=== PATIENT | male | born 1955 | race Caucasian/White ===

== ENCOUNTER 2016-10-24 15:41 | Emergency (ER) | payer OTHER ==
[~2016-10-24] VITALS: Ht 170.2 cm; Wt 85.0 kg
[2016-10-24 15:44] VITALS: BP 126/80; PULSE 105; RESP 14; TEMP 98.3; O2SAT 100
[2016-10-24] MEDS ORDERED: OMEP20TA PO (17:05)
[2016-10-24] MEDS ORDERED: HYDR25TA5 PO (17:05)
[2016-10-24] MEDS ORDERED: LOSA100T PO (17:05)
--- NOTE | 2016-10-24 17:27 | PD ---
HPI Chief Complaint: Pain: Acute or Chronic Time Seen by Provider: 17:03 Travel History International Travel<30 days: No Contact w/Intl Traveler<30days: No Traveled to known affect area: No History of Present Illness HPI This is a 61-year-old male who presents to the emergency department with pain in his left ankle and calf, constant, severe, feeling like needles shooting in his leg. He says this is been going on forever. He says it's gotten worse in the past week and a half because his physician took him off of oxycodone and put him on tramadol. He's had ligament reconstructions of his ankle in the past and he had an injury at work leading to pain in his ankle. He also reports that over the past months to a year he's lost 40 pounds, he is becoming more weak, and he has developed a generalized tremor. The tremor was intermittent at first but now appears to be affecting him all the time particularly in the past 2 weeks and he has difficulty doing simple things like mowing his lawn or riding his motorcycle. He's never seen a doctor for this. He says he drinks alcohol but not every day and when he drinks he drinks about a sixpack of beer. PFSH Past Medical History Hx Anticoagulant Therapy: No Cardiovascular Problems: Yes Diabetes: No Hypertension: Yes Past Surgical History Other Surgery: Yes (left leg) Social History Alcohol Use: Yes (occ) Tobacco Use: Yes Substance Use: No Allergies-Medications (Allergen,Severity, Reaction): Coded Allergies: No Known Allergies (Unverified , 10/24/16) Reported Meds & Prescriptions Reported Meds & Active Scripts Active Reported Hydrochlorothiazide 25 Mg Tab 25 Mg PO DAILY Omeprazole 20 Mg Tab 20 Mg PO DAILY Losartan (Losartan Potassium) 100 Mg Tab 100 Mg PO DAILY Review of Systems Except as stated in HPI: all other systems reviewed are Neg Physical Exam Narrative GENERAL:Well appearing, no acute distress SKIN: Focused skin assessment warm and dry. HEAD: Atraumatic. Normocephalic. EYES: Pupils equal and round. No injection or drainage. ENT: Moist mucous membranes NECK: Trachea midline. CARDIOVASCULAR: Regular rate and rhythm. No murmur appreciated. RESPIRATORY: Clear to auscultation. Breath sounds equal bilaterally. GASTROINTESTINAL: Abdomen soft, non-tender, nondistended. MUSCULOSKELETAL: No obvious deformities. NEUROLOGICAL: Awake and alert. No obvious cranial nerve deficits. Muscle fasciculations in the calves, resting tremor in the bilateral upper extremities , some ataxia appears to be associated with tremor. No dysarthria or aphasia. No upper or lower extremity drift. PSYCHIATRIC: Appropriate mood and affect; insight and judgment normal. Data Data Last Documented VS Vital Signs Date Time Temp Pulse Resp B/P Pulse Ox O2 Delivery O2 Flow Rate FiO2 10/24/16 18:12 77 16 142/73 98 Room Air 10/24/16 15:44 98.3 Orders Complete Blood Count With Diff (10/24/16 17:18) Comprehensive Metabolic Panel (10/24/16 17:18) ^ Insert Iv (10/24/16 17:18) Morphine Inj (Morphine Inj) (10/24/16 17:30) Ammonia (10/24/16 19:11) Labs Laboratory Tests Test 10/24/16 10/24/16 17:57 19:15 White Blood Count 6.4 TH/MM3 Red Blood Count 4.40 MIL/MM3 Hemoglobin 15.1 GM/DL Hematocrit 43.4 % Mean Corpuscular Volume 98.6 FL Mean Corpuscular Hemoglobin 34.3 PG Mean Corpuscular Hemoglobin 34.8 % Concent Red Cell Distribution Width 13.1 % Platelet Count 125 TH/MM3 Mean Platelet Volume 7.9 FL Neutrophils (%) (Auto) 68.5 % Lymphocytes (%) (Auto) 21.8 % Monocytes (%) (Auto) 8.6 % Eosinophils (%) (Auto) 0.7 % Basophils (%) (Auto) 0.4 % Neutrophils # (Auto) 4.4 TH/MM3 Lymphocytes # (Auto) 1.4 TH/MM3 Monocytes # (Auto) 0.6 TH/MM3 Eosinophils # (Auto) 0.0 TH/MM3 Basophils # (Auto) 0.0 TH/MM3 CBC Comment DIFF FINAL Differential Comment Sodium Level 125 MEQ/L Potassium Level 3.6 MEQ/L Chloride Level 85 MEQ/L Carbon Dioxide Level 27.9 MEQ/L Anion Gap 12 MEQ/L Blood Urea Nitrogen 9 MG/DL Creatinine 1.04 MG/DL Estimat Glomerular Filtration 73 ML/MIN Rate Random Glucose 108 MG/DL Calcium Level 10.0 MG/DL Total Bilirubin 1.7 MG/DL Aspartate Amino Transf 123 U/L (AST/SGOT) Alanine Aminotransferase 189 U/L (ALT/SGPT) Alkaline Phosphatase 78 U/L Total Protein 7.7 GM/DL Albumin 4.2 GM/DL Ammonia 32 MCMOL/L MDM Medical Decision Making Medical Screen Exam Complete: Yes Emergency Medical Condition: Yes Interpretation(s) No leukocytosis Hyponatremia Total bilirubin is 1.7 AST and ALT are elevated Ammonia is normal Differential Diagnosis Alcohol withdrawal, opiate withdrawal, Parkinson's disease, essential tremor Narrative Course This is a 61-year-old male who presents to the emergency department with multiple symptoms including acute on chronic lower extremity pain, tremulousness , and weight loss. On exam he is tremulous. I suspect the patient is in early alcohol withdrawal. I don't think he is disclosing the amount of alcohol that he drinks. Labs were obtained which demonstrate hyponatremia, a total bilirubin of 1.7 and a transaminitis. I suspect he has cirrhosis and I suspect it's related to alcohol although certainly hepatitis is on the differential. I think patient requires primary care follow-up, gastroenterology follow-up, and neurology follow-up regarding his tremor. Patient will be discharged home. I don't think he has any criteria that merits urgent admission. He is hyponatremic but I suspect this is in the setting of cirrhosis and I don't think admission would benefit this patient, I think he needs an outpatient workup regarding his liver function. Diagnosis Primary Impression: Liver disease Referrals: Ayush Finch MD, Hassan MD Patient Instructions: General Instructions Additional Instructions: If you develop severe or worsening abdominal pain, fever>100.4, persistent vomiting or inability to eat or drink return to the emergency department immediately. Follow-up with a primary care physician, a academic counselor and a neurologist as an outpatient. Med/Other Pt SpecificInfo: Prescription(s) given Scripts Oxycodone 5 Mg Tab5 Mg PO Q6HR #10 TAB Ref 0 Prov:Yvonne Graham MD 10/24/16 Disposition: 01 DISCHARGE HOME Condition: Stable Yvonne Graham MD Oct 24, 2016 17:27
[2016-10-24] MEDS ORDERED: MORPHINE SULFATE 4 MG/ML INJ IV PUSH ONE (17:30)
[2016-10-24 18:12] VITALS: BP 142/73; PULSE 77; RESP 16; O2SAT 98
[2016-10-24 18:49] LABS: AUTOMATED NEUTROPHIL # 4.4 TH/MM3 (1.8-7.7); BASOPHIL % 0.4 % (0.0-2.0); EOSINOPHIL % 0.7 % (0.0-4.0); HEMATOCRIT 43.4 % (39.0-51.0); HEMO FLAGS DIFF FINAL; LYMPH % 21.8 % (9.0-44.0); LYMPHOCYTE # 1.4 TH/MM3 (1.0-4.8); MEAN CELL VOLUME 98.6 FL (80.0-100.0); MEAN CORPUSCULAR HEMOGLOBIN 34.3 PG (27.0-34.0); MEAN CORPUSCULAR HGB CONC 34.8 % (32.0-36.0); MONO % 8.6 % (0.0-8.0); NEUT % 68.5 % (16.0-70.0); PLATELET COUNT 125 TH/MM3 (150-450); RED CELL DISTRIBUTION WIDTH 13.1 % (11.6-17.2); WHITE BLOOD COUNT 6.4 TH/MM3 (4.0-11.0)
[2016-10-24 19:09] LABS: ALKALINE PHOSPHATASE 78 U/L (45-117); ALT (GPT) 189 U/L (12-78); TOTAL BILIRUBIN ADULT 1.7 MG/DL (0.2-1.0)
[2016-10-24 19:13] LABS: ANION GAP 12 MEQ/L (5-15); AST (GOT) 123 U/L (15-37); BICARBONATE 27.9 MEQ/L (21.0-32.0); BLOOD UREA NITROGEN 9 MG/DL (7-18); CHLORIDE 85 MEQ/L (98-107); GLOMERULAR FILTRATION RATE 73 ML/MIN (>89); POTASSIUM 3.6 MEQ/L (3.5-5.1); SODIUM (NA) 125 MEQ/L (136-145)
[2016-10-24] MEDS ORDERED: OXYC-392 PO (20:32)
== END 2016-10-24 20:49 | disposition home or self-care (01) ==
LOC: NEPD 15:41
DX: K76.9 Liver disease, unspecified (principal); I10 Essential (primary) hypertension; Z72.0 Tobacco use
CPT/HCPCS: 80053; 82140; 85025; 96374; 99284; J2270

== ENCOUNTER → 2016-12-22 | Outpatient (CLI) | payer OTHER ==
[~2016-12-22] MED LIST: DULO1CAP2 PO; HYDR25TA5 PO; LIDO1PAD52 TOPICAL; LOSA100T PO; OMEP20TA PO; OXYC-392 PO
--- NOTE | 2016-12-22 17:31 | RADRPT ---
EXAM DATE/TIME: 12/22/2016 09:25 [facility] COMPARISON: No previous studies available for comparison. INDICATIONS : Abnormal liver function tests. MEDICAL HISTORY : Myocardial infarction. Hypertension. Borderline diabetes. SURGICAL HISTORY : Appendectomy. Left ankle surgery. Left achilles tendon repair. ENCOUNTER: Initial ACUITY: 1 day PAIN SCORE: 0/10 LOCATION: Abdomen. MEASUREMENTS: LIVER: 16.0 cm length COMMON DUCT: 2 mm RIGHT KIDNEY: 12.2 x 6.3 x 5.4 cm LEFT KIDNEY: 11.5 x 5.6 x 6.4 cm SPLEEN: 11.0 cm length AORTA: 2.5cm maximal FINDINGS: LIVER: Normal echotexture without focal lesion or ductal dilatation. COMMON DUCT: No intraluminal mass or stone visualized. GALLBLADDER: Contains no stones, demonstrates no wall thickening or pericholecystic fluid. PANCREAS: The visualized portions are within normal limits. RIGHT KIDNEY: No hydronephrosis, stone or mass. LEFT KIDNEY: No hydronephrosis, stone or mass. SPLEEN: No focal lesion. AORTA: Non aneurysmal. IVC: Within normal limits. CONCLUSION: Focally unremarkable sonographic appearance. Cleveland Woodson MD on December 22, 2016 at 17:27 Board Certified Radiologist. This report was verified electronically.
== END ==
LOC: HRAD 08:45
PROVIDERS: ATTEND Internal Medicine Gastroenterology
DX: R79.89 Other specified abnormal findings of blood chemistry (principal)
CPT/HCPCS: 76700

== ENCOUNTER → 2017-02-07 | Outpatient (CLI) | payer OTHER ==
[~2017-02-07] VITALS: Ht 167.6 cm; Wt 80.9 kg
[~2017-02-07] MED LIST changes: +CHLORHEXIDINE GLUCONATE 2 % 1 PACK (2 CLOTHS) TOPICAL PRN; +INSULIN HUMAN REGULAR 1,000 UNITS/10 ML VIAL SQ PRN; +LACTATED RINGER'S 1000 ML IV PRN; +LIDOCAINE HCL 1% PF 5 ML AMPULE OTHER ONE; +METOPROLOL TARTRATE 25 MG TAB PO PRN; -OXYC-392 PO; +POVIDONE IODINE 5% (ANTISEPSIS KIT) 4 APPLICATIONS EACH NARE PRN; +PROPOFOL 200 MG/20 ML AMP IV ONE; +SODIUM CHLORID 0.9% 500 ML IV PRN; +ePHEDrine/NS 25 MG/5 ML SYR IV ONE
--- NOTE | 2017-02-07 12:34 | GIPROC ---
[facility] [address] [facility]. [facility], [address] EGD PROCEDURE REPORT EXAM DATE: 02/07/2017 PATIENT NAME: Hammad Estrella MR #: [id number] BIRTHDATE: 1955 ATTENDING: Jorge Mcelroy MD ORDER #: [id number] SHIFT BOSS: Jesse Hanks and Sarah Stark STATUS: outpatient INDICATIONS: The patient is a 61 yr old male here for an EGD due to dysphagia, weight loss, and loss of appetite PROCEDURE PERFORMED: EGD w/ biopsy EGD w/ dilation of esophagus via guidewire MEDICATIONS: None and Per Anesthesia. TOPICAL ANESTHETIC: none CONSENT: The patient understands the risks and benefits of the procedure and understands that these risks include, but are not limited to: sedation, allergic reaction, infection, perforation and/or bleeding. Alternative means of evaluation and treatment include, among others: physical exam, x-rays, and/or surgical intervention. The patient elects to proceed with this endoscopic procedure. medical equipment was checked for proper function. Hand hygiene and appropriate measures for infection prevention was taken. After the risks, benefits and alternatives of the procedure were thoroughly explained, Informed consent was verified, confirmed and timeout was successfully executed by the treatment team. The patient was anesthetized with topical anesthesia and the Pentax [id number] endoscope was introduced through the mouth and advanced to the third portion of the duodenum. Retroflexion was performed and was normal The gastroscope was then slowly withdrawn and removed. GE jx was at 39 cm. Cervical resistence-no lesions seen. The stricture was dilated using a 16mm (48Fr) savary dilator over guidewire. Following this dilation, there was no change in the appearance of the stricture. STOMACH: There was mild gastritis in the gastric antrum. Multiple biopsies were performed using cold forceps. DUODENUM: Mild duodenal inflammation was found in the duodenal bulb. ADVERSE EVENTS: There were no complications. IMPRESSIONS: 1. GE jx was at 39 cm. Cervical resistence-no lesions seen 2. There was mild gastritis in the gastric antrum; multiple biopsies were performed 3. Duodenal inflammation was found in the duodenal bulb 4. Retroflexion was performed and was normal RECOMMENDATIONS: 1. Await biopsy results. Biopsy results will not be ready for 7-10 days. If you don't hear from us in two weeks, call our office for biopsy results. 2. Colonoscopy PATIENT CONDITION: stable DISPOSITION: Home REPEAT EXAM: NONE Jorge Mcelroy MD eSigned: Jorge Mcelroy MD 02/07/2017 12:34 PM cc: PATIENT NAME: Hammad Estrella Tia MR#: [id number]
--- NOTE | 2017-02-07 12:45 | GIPROC ---
[facility] [address] [facility]. [facility], [address] COLONOSCOPY PROCEDURE REPORT EXAM DATE: 02/07/2017 PATIENT NAME: Hammad Estrella MR #: [id number] BIRTHDATE: 1955 ENDOSCOPIST: Jorge Mcelroy MD ORDER #: [id number] DATE NIGHT SITTER: Jesse Hanks and Sarah Stark STATUS: outpatient INDICATIONS: The patient is a 61 yr old male here for a colonoscopy due to average risk patient for colon cancer PROCEDURE PERFORMED: Colonoscopy with biopsy Colonoscopy with polypectomy MEDICATIONS: None and Per Anesthesia. PREP QUALITY: suboptimal PREP TYPE:GoLytely ESTIMATED BLOOD LOSS: None CONSENT: The patient understands the risks and benefits of the procedure and understands that these risks include, but are not limited to: sedation, allergic reaction, infection, perforation and/or bleeding. Alternative means of evaluation and treatment include, among others: physical exam, x-rays, and/or surgical intervention. The patient elects to proceed with this endoscopic procedure. medical equipment was checked for proper function. Hand hygiene and appropriate measures for infection prevention was taken. After the risks, benefits and alternatives of the procedure were thoroughly explained, Informed consent was verified, confirmed and timeout was successfully executed by the treatment team. A digital exam was performed and revealed no abnormalities of the rectum The Pentax [id number] endoscope was introduced through the anus and advanced to the cecum, which was identified by both the appendix and ileocecal valve. The instrument was then slowly withdrawn as the colon was fully examined. COLON FINDINGS: Five smooth sessile polyps ranging between 3-5mm in size were found in the distal transverse colon. A polypectomy was performed with a cold snare. The resection was complete and the polyp tissue was completely retrieved. A pedunculated polyp measuring 2.5 cm in size with a friable surface was found in the distal sigmoid colon. A polypectomy was performed using snare cautery. The resection was complete and the polyp tissue was completely retrieved. A smooth sessile polyp measuring 2 mm in size was found in the distal sigmoid colon. A biopsy was performed using cold forceps. A smooth sessile polyp measuring 3 mm in size was found in the rectum. A polypectomy was performed with a cold snare. The resection was complete and the polyp tissue was completely retrieved. Four smooth sessile polyps measuring 2 mm in size were found in the rectum. Multiple biopsies were performed using cold forceps. Retroflexion was performed The scope was then completely withdrawn from the patient and the procedure terminated. PROCEDURE WITHDRAWAL TIME:20minutes ADVERSE EVENTS: There were no complications. IMPRESSIONS: 1. Five sessile polyps ranging between 3-5mm in size were found in the distal transverse colon; polypectomy was performed with a cold snare 2. A pedunculated polyp measuring 2.5 cm in size was found in the distal sigmoid colon; polypectomy was performed using snare cautery 3. A sessile polyp was found in the distal sigmoid colon; biopsy was performed using cold forceps 4. A sessile polyp was found in the rectum; polypectomy was performed with a cold snare 5. Four sessile polyps were found in the rectum; multiple biopsies were performed using cold forceps 6. Retroflexion was performed 7. Was performed 8. Revealed no abnormalities of the rectum RECOMMENDATIONS: 1. Await biopsy results. Biopsy results will not be ready for 7-10 days. If you don't hear from us in two weeks, call our office for results. 2. Avoid NSAIDS and Aspirin RECALL: Return 1 year Colonoscopy Jorge Mcelroy MD eSigned: Jorge Mcelroy MD 02/07/2017 12:45 PM cc: PATIENT NAME: Hammad Estrella MR#: [id number]
[2017-02-07 13:15] VITALS: BP 159/84; PULSE 65; RESP 18; TEMP 97.5; O2SAT 100
--- NOTE | 2017-02-07 14:31 | EKG ---
Date Performed: 02/07/2017 Time Performed: 10:34:00 PTAGE: 61 years EKG: Sinus rhythm NORMAL ECG NO PREVIOUS TRACING DOCTOR: Tabitha Moreland Interpretating Date/Time 02/07/2017 14:30:16
== END ==
LOC: HSDC 09:39
PROVIDERS: ATTEND Internal Medicine Gastroenterology
DX: K22.2 Esophageal obstruction (principal); K29.70 Gastritis, unspecified, without bleeding; K21.9 Gastro-esophageal reflux disease without esophagitis; K62.1 Rectal polyp; D12.3 Benign neoplasm of transverse colon; R63.4 Abnormal weight loss; K59.00 Constipation, unspecified; R63.0 Anorexia; R11.0 Nausea; I10 Essential (primary) hypertension; R79.89 Other specified abnormal findings of blood chemistry; Z01.810 Encounter for preprocedural cardiovascular examination
CPT/HCPCS: 00810; 43239; 43248; 45380; 45385; 88305; 88312; 93005; C1769; J3010; J7120

== ENCOUNTER → 2017-03-14 | Outpatient (CLI) | payer OTHER ==
[~2017-03-14] MED LIST changes: -CHLORHEXIDINE GLUCONATE 2 % 1 PACK (2 CLOTHS) TOPICAL PRN; -INSULIN HUMAN REGULAR 1,000 UNITS/10 ML VIAL SQ PRN; +IOHEXOL 350 MG/ML 10 ML VIAL (for RAD DIAG) IVCONTRAST ONE; -LACTATED RINGER'S 1000 ML IV PRN; -LIDOCAINE HCL 1% PF 5 ML AMPULE OTHER ONE; -METOPROLOL TARTRATE 25 MG TAB PO PRN; -POVIDONE IODINE 5% (ANTISEPSIS KIT) 4 APPLICATIONS EACH NARE PRN; -PROPOFOL 200 MG/20 ML AMP IV ONE; -SODIUM CHLORID 0.9% 500 ML IV PRN; -ePHEDrine/NS 25 MG/5 ML SYR IV ONE
--- NOTE | 2017-03-14 12:02 | RADRPT ---
EXAM DATE/TIME: 03/14/2017 08:42 [facility] COMPARISON: No previous studies available for comparison. INDICATIONS : Nausea with weight loss. Loss of appetite. DOSE: 1.0 mCi IMAGIN hr 35 MINS MEDICAL HISTORY : Hypertension. Hepatitis A. Gastroesophageal reflux disease. Smoker. SURGICAL HISTORY : Tonsillectomy. Appendectomy. ENCOUNTER: Initial ACUITY: 1 day PAIN SCALE: 0/10 LOCATION: Bilateral upper quadrant TECHNIQUE: Following the oral ingestion of radiotracer-labeled meal, dynamic sequential images in the ENGLISH projec tion were acquired with simultaneous computer acquisition. The data set was decay-corrected. FINDINGS: LAG PHASE: There is no lag phase.. EMPTYING: Gastric emptying kinetics are linear. The decay-corrected, back-extrapolated half-time of emptying i s 25 minutes. (Normal for this lab is 45- 90 minutes.) CONCLUSION: Rapid gastric emptying as above.. Vaughn Sylvester MD FACR on March 14, 2017 at 11:52 Board Certified Radiologist. This report was verified electronically.
--- NOTE | 2017-03-14 12:02 | RADRPT ---
EXAM DATE/TIME: 03/14/2017 08:42 [facility] COMPARISON: No previous studies available for comparison. INDICATIONS : Nausea with weight loss. Loss of appetite. DOSE: 1.0 mCi IMAGIN hr 35 MINS MEDICAL HISTORY : Hypertension. Hepatitis A. Gastroesophageal reflux disease. Smoker. SURGICAL HISTORY : Tonsillectomy. Appendectomy. ENCOUNTER: Initial ACUITY: 1 day PAIN SCALE: 0/10 LOCATION: Bilateral upper quadrant TECHNIQUE: Following the oral ingestion of radiotracer-labeled meal, dynamic sequential images in the FAROESE projec tion were acquired with simultaneous computer acquisition. The data set was decay-corrected. FINDINGS: LAG PHASE: There is no lag phase.. EMPTYING: Gastric emptying kinetics are linear. The decay-corrected, back-extrapolated half-time of emptying i s 25 minutes. (Normal for this lab is 45- 90 minutes.) CONCLUSION: Rapid gastric emptying as above.. Vaughn Sylvester MD FACR on March 14, 2017 at 11:52 Board Certified Radiologist. This report was verified electronically.
--- NOTE | 2017-03-14 12:02 | RADRPT ---
EXAM DATE/TIME: 03/14/2017 08:42 [facility] COMPARISON: No previous studies available for comparison. INDICATIONS : Nausea with weight loss. Loss of appetite. DOSE: 1.0 mCi IMAGIN hr 35 MINS MEDICAL HISTORY : Hypertension. Hepatitis A. Gastroesophageal reflux disease. Smoker. SURGICAL HISTORY : Tonsillectomy. Appendectomy. ENCOUNTER: Initial ACUITY: 1 day PAIN SCALE: 0/10 LOCATION: Bilateral upper quadrant TECHNIQUE: Following the oral ingestion of radiotracer-labeled meal, dynamic sequential images in the DANISH projec tion were acquired with simultaneous computer acquisition. The data set was decay-corrected. FINDINGS: LAG PHASE: There is no lag phase.. EMPTYING: Gastric emptying kinetics are linear. The decay-corrected, back-extrapolated half-time of emptying i s 25 minutes. (Normal for this lab is 45- 90 minutes.) CONCLUSION: Rapid gastric emptying as above.. Vaughn Sylvester MD FACR on March 14, 2017 at 11:52 Board Certified Radiologist. This report was verified electronically.
--- NOTE | 2017-03-14 16:02 | RADRPT ---
EXAM DATE/TIME: 03/14/2017 12:23 [facility] COMPARISON: No previous studies available for comparison. INDICATIONS : Loss of appetite and unexplained weight loss. IV CONTRAST: 78 cc Omnipaque 350 (iohexol) IV ORAL CONTRAST: No oral contrast ingested. RADIATION DOSE: 13.81 CTDIvol (mGy) MEDICAL HISTORY : Hypertension. SURGICAL HISTORY : Appendectomy. ENCOUNTER: Initial ACUITY: 4 - 6 months PAIN SCALE: 0/10 LOCATION: abdomen TECHNIQUE: Volumetric scanning of the abdomen and pelvis was performed. Using automated exposure control and ad justment of the mA and/or kV according to patient size, radiation dose was kept as low as reasonably achievable to obtain optimal diagnostic quality images. DICOM format image data is available electro nically for review and comparison. FINDINGS: LOWER LUNGS: The visualized lower lungs are clear. LIVER: Homogeneous density without lesion. There is no dilation of the biliary tree. No calcified gallston es. SPLEEN: Normal size without lesion. PANCREAS: Within normal limits. KIDNEYS: Normal in size and shape. There is no mass, stone or hydronephrosis. ADRENAL GLANDS: Within normal limits. VASCULAR: There is no aortic aneurysm. BOWEL/MESENTERY: The stomach, small bowel, and colon demonstrate no acute abnormality. There is no free intraperitone al air or fluid. ABDOMINAL WALL: Within normal limits. RETROPERITONEUM: There is no lymphadenopathy. BLADDER: No wall thickening or mass. REPRODUCTIVE: Within normal limits. INGUINAL: There is no lymphadenopathy or hernia. MUSCULOSKELETAL: Within normal limits for patient age. CONCLUSION: Negative. I do not see an etiology for the patient's weight loss and pain. Vaughn Sylvester MD FACR on March 14, 2017 at 15:44 Board Certified Radiologist. This report was verified electronically.
== END ==
LOC: HRAD 07:56
PROVIDERS: ATTEND Internal Medicine Gastroenterology
DX: R63.4 Abnormal weight loss (principal); R63.0 Anorexia
CPT/HCPCS: 74177; 78264; A9541; Q9967

== ENCOUNTER 2017-05-11 06:34 | Day surgery (SDC) | payer OTHER ==
[2017-05-11] VITALS (8 sets, daily range): BP systolic 113–161; BP diastolic 69–104; PULSE 75–107; RESP 18–20; TEMP 98.3; O2SAT 92–94
[~2017-05-11] VITALS: Ht 167.6 cm; Wt 79.5 kg
[~2017-05-11 06:34] MED LIST changes: -IOHEXOL 350 MG/ML 10 ML VIAL (for RAD DIAG) IVCONTRAST ONE; -OMEP20TA PO; +OMEP20TA93 PO
[2017-05-11] MEDS ORDERED: MIDAZOLAM HCL 2 MG/2 ML VIAL ONE (07:23)
[2017-05-11] MEDS ORDERED: LIDOCAINE HCL 1% 20 ML VIAL ONE (07:49)
[2017-05-11] MEDS ORDERED: SODIUM BICARBONATE 8.4% INJ 50 ML ONE (07:49)
--- NOTE | 2017-05-11 08:37 | PD.RAD ---
Post CT Procedure Prog Note Pre Procedure Diagnosis: (1) Liver disease Post Procedure Diagnosis: (1) Liver disease Procedure Date: May 11, 2017 Supervising Radiologist: Fantasma Prince Anesthesia: Local, Conscious Sedation Plan of Activity Patient to Unit: ROPU Patient Condition: Good See PACS Report for procedural detail/treatment Biopsy Imaging Guidance: CT Side: Right Biopsy Procedure: Liver Specimen: Core Biopsy Fantasma Prince MD May 11, 2017 08:37
--- NOTE | 2017-05-11 10:14 | RADRPT ---
EXAM DATE/TIME: 05/11/2017 08:16 [facility] COMPARISON: No previous studies available for comparison. INDICATIONS : Abnormal liver function tests. SEDATION TIME: 30 minutes BIOPSY SITE: liver MEDICATION(S): 1.) 3 mg midazolam (Versed) IV 2.) 150 mcg fentanyl (Sublimaze) IV DEVICE(S): 1.) 18 gauge BioPince needle MEDICAL HISTORY : None. SURGICAL HISTORY : None. ENCOUNTER: Initial ACUITY: 1 day PAIN SCORE: 0/10 LOCATION: Right lateral A total of two core specimen(s) were obtained and sent to the laboratory for pathologic evaluation. PROCEDURE: 1. CT guided liver biopsy. 2. Conscious sedation with continuous EKG and oximetry monitoring. Prior to the procedure informed consent was obtained. Any appropriate prior imaging studies were rev iewed. Using automated exposure control and adjustment of the mA and/or kV according to patient size, radiat ion dose was kept as low as reasonably achievable to obtain optimal diagnostic quality images. DICOM format image data is available electronically for review and comparison. The site was prepped in a sterile fashion. Full sterile technique was used, including cap, mask, neri rile gloves and gown and a large sterile sheet. Hand hygiene and 2% chlorhexidine and/or betadine/al cohol prep was utilized per protocol for cutaneous antisepsis. The skin and subcutaneous tissues wer e infiltrated with local anesthetic solution. With CT guidance the previously identified target was localized. Biopsy was performed using the presc ribed needle as above. Adequate hemostasis was obtained with compression at the puncture site. Follow-up CT scan reveals no hemorrhage. The patient tolerated the procedure well and there were no complications. The patient was returned to the Radiology Outpatient Unit in stable condition. CONCLUSION: Uncomplicated CT guided biopsy. Fantasma Prince MD on May 11, 2017 at 10:12 Board Certified Radiologist. This report was verified electronically.
== END 2017-05-11 12:22 | disposition home or self-care (01) ==
LOC: HRAD 06:34 → HRIP 06:38 → HRAD 12:22
PROVIDERS: ATTEND Internal Medicine Gastroenterology
DX: R79.89 Other specified abnormal findings of blood chemistry (principal); K75.81 Nonalcoholic steatohepatitis (NASH)
CPT/HCPCS: 47000; 77012; 88307; 88313; J2250; J3010